=== PATIENT | female | born 1990 | race Two or more races ===

== ENCOUNTER 2017-01-30 02:05 | Emergency (ER) | payer BC ==
[2017-01-30 02:26] VITALS: BP 103/48; PULSE 66; TEMP 97.7; BMI 23.6
[2017-01-30 02:35] LABS: BASOPHIL 0.7 % (0-2.0); EOSINOPHIL 2.2 % (0-4.5); MCH 29.1 pg (25.7-33.7); MCHC 33.1 g/dl (32.0-36.0); MEAN PLT VOLUME 9.2 fl (7.5-11.1); NEUTROPHILS 56.8 % (42.8-82.8); PLATELET COUNT 216 K/MM3 (134-434); RDW 13.6 % (11.6-15.6); WHITE BLOOD COUNT 9.3 K/mm3 (4.0-10.0)
[2017-01-30 02:38] LABS: URINE APPEARANCE CLOUDY; URINE BILIRUBIN NEGATIVE (NEGATIVE); URINE BLOOD NEGATIVE (NEGATIVE); URINE COLOR YELLOW; URINE GLUCOSE (UA) NEGATIVE (NEGATIVE); URINE KETONE TRACE (NEGATIVE); URINE NITRITE NEGATIVE (NEGATIVE); URINE PROTEIN NEGATIVE (NEGATIVE); URINE UROBILINOGEN NEGATIVE mg/dL (0.2-1.0)
--- NOTE | 2017-01-30 02:44 | PDOC ---
History of Present Illness - General Chief Complaint: Syncope/Near Syncope Stated Complaint: SYNCOPE/PAIN History Source: Patient Exam Limitations: No Limitations - History of Present Illness Initial Comments: 01/30/17 02:47 This is a 26-year-old female who comes in complaining of she went to the bathroom and after urinating got up to go back to bed and has to. Patient said when she urinated that there was some burning associated with urination patient denies any frequency. Patient says she is sexually active and does not always use protection. Patient said that her menses are normal and her last one was normal.. Patient. Is complaining of pelvic pain in addition to the burning on urination. Patient denies any fevers or chills. Patient denies any nausea vomiting or diarrhea. PAST MEDICAL HISTORY: no significant history PAST SURGICAL HISTORY: no significant history FAMILY HISTORY: no pertinant history SOCIAL HISTORY: Pt lives with family and is employed. MEDICATIONS: reviewed ALLERGIES: As per nursing notes Review of Systems General: No fevers or chills, no weakness, no weight loss HEENT: No change in vision. No sore throat,. No ear pain CardioVascular: No chest pain or shortness of breath Respiratory:No cough, or wheezing. Gastrointestinal: no nausea, vomitting, diarrhea or constipation, No rectal bleeding Genitourinary: + dysuria, no hematuria, or frequency Musculoskeletal: No joint or muscle pain or swelling Neurologic: No headache, vertigo, dizziness or loss of consciousness Psychiatric: nor depression Skin: No rashes or easy bruising Endocrine: no increased thirst or abnormal weight change Allergic: no skin or latex allergy All other systems reviewed and normal Exam: General: Well-nourished well-developed individual, no acute distress HEENT: Throat: Normal, tonsils normal, no erythema or exudate Neck: Supple, no meningeal signs, no lymphadenopathy Eyes::Pupils equal reactive and round, extraocular motion intact Chest: Nontender to palpation Cardiac: S1-S2 normal, regular rate and rhythm, no murmurs rubs or gallops Respiratory: Lungs clear to auscultation bilateral Abdomen: Soft, nondistended, normal bowel sounds, nontender to palpation diffusely Pelvic exam: There is a moderate amount of whitish discharge, there is cervical motion tenderness and bilateral adnexal tenderness on pelvic exam. There is some fullness in the left adnexa. Extremities: Warm, dry, no cyanosis, clubbing, or edema Skin: No rashes Neuro: Alert and oriented x3, nonfocal exam, grossly intact, normal gait Psych: Normal mood and affect Medical decision making: This is a 26-year-old female who had a Ultrasound pelvic showed a ruptured hemorrhagic cyst with some free fluid in the pelvis otherwise no torsion and normal ultrasound 01/30/17 05:52 Past History - Past Medical History Allergies/Adverse Reactions: Allergies Allergy/AdvReac Type Severity Reaction Status Date / Time cefadroxil Allergy Verified 01/30/17 02:23 milk Allergy Verified 01/30/17 02:24 Home Medications: Ambulatory Orders NK [No Known Home Medication] 01/30/17 Cardiac Disorders: Yes (CHEST PAIN) COPD: No Other medical history: SHINGLES - Suicide/Smoking/Psychosocial Hx Smoking History: Never smoked *Physical Exam - Vital Signs Last Vital Signs Temp Pulse Resp BP Pulse Ox 97.7 F 66 18 103/48 100 01/30/17 02:10 01/30/17 02:10 01/30/17 02:10 01/30/17 02:10 01/30/17 02:10 ED Treatment Course - LABORATORY CBC & Chemistry Diagram: 01/30/17 02:18 01/30/17 02:18 *DC/Admit/Observation/Transfer Diagnosis at time of Disposition: Ruptured cyst of ovary, Pelvic pain, Syncope - Discharge Dispostion Disposition: HOME Condition at time of disposition: Stable Admit: No - Referrals - Patient Instructions Printed Discharge Instructions: DI for Syncope in Adults (Fainting) Additional Instructions: Because you're ALLERGIC to cephalosporins I'm unable to treat you for the gonorrhea here in the emergency room. I did treat you for the chlamydia. If your test comes back positive for gonorrhea you'll need to be admitted to the hospital for IV antibiotics As there are no alternative outpatient oral antibiotics that I can give you that will be effective against gonorrhea. Your ultrasound shows that you had a ovarian cyst that most likely ruptured and there is now some blood in your pelvis the pain will resolve on its own once the blood has been resolved over the course of the next 2-3 days.. No work rest at home for the next 2 days. Tylenol or Motrin as needed for pain or you can also take Aleve. Return to the emergency department immediately with ANY new, persistent or worsening symptoms. Continue any medications as previously prescribed by your physician. You should follow up with your primary doctor as soon as possible regarding today's emergency department visit. . Please make sure your doctor reviews the results of your emergency evaluation. Thank you for coming to the Emergency Department today for your care. It was a pleasure to see you today. Please note that your evaluation is INCOMPLETE until you follow-up with your doctor. - Post Discharge Activity
[2017-01-30 02:57] LABS: ALBUMIN 3.8 g/dl (3.4-5.0); ALK PHOS 63 U/L (45-117); ANION GAP 8 (8-16); BILIRUBIN,TOTAL 0.5 mg/dL (0.2-1.0); CALCIUM 8.9 mg/dL (8.5-10.1); CO2 27 mmol/L (21-32); CREATININE 0.7 mg/dL (0.55-1.02); GLUCOSE,RANDOM 86 mg/dL (74-106); SGOT/AST 12 U/L (15-37); SGPT/ALT 16 U/L (12-78); TOT PROT 7.1 g/dl (6.4-8.2)
[2017-01-30] MEDS ORDERED: AZITHROMYCIN 1 GM PACKET PO ONE (03:19)
[2017-01-30] MEDS ORDERED: AZITHROMYCIN 250 MG TABLET ONE (03:22)
[2017-01-30] MEDS ORDERED: KETOROLAC TROMETHAMINE 30 MG/1 ML VIAL IVPUSH ONE (03:28)
[2017-01-30] MEDS ORDERED: KETOROLAC TROMETHAMINE 30 MG/1 ML VIAL ONE (03:34)
[2017-01-30 17:23] LABS: URINE LEUK ESTERASE Negative (NEGATIVE)
== END 2017-01-30 05:59 | disposition home or self-care (01) ==
LOC: FER 02:05
PROC: 3E0333Z Introduction of Anti-inflammatory into Peripheral Vein, Percutaneous Approach (ICD-10-PCS; principal; 2017-01-30)
DX: R55 Syncope and collapse (principal); N83.292 Other ovarian cyst, left side; R10.2 Pelvic and perineal pain
CPT/HCPCS: 36415; 76856-TC; 80053; 81003; 84703; 85025; 87491; 87591; 99283-25